=== PATIENT | male | born 1960 | race African-American/Black ===

== ENCOUNTER 2017-04-13 17:27 | Emergency (ER) | payer MEDICAID ==
[~2017-04-13] VITALS: Ht 180.3 cm; Wt 75.0 kg
[2017-04-13] MEDS ORDERED: TETANUS, DIPHTHERIA, PERTUSSIS VAC/PF 0.5ML (>7YR OLD) IM ONE (18:15)
[2017-04-13] MEDS ORDERED: BACITRACIN ZINC OINT UDPKT TOP ONE (18:15)
[2017-04-13] MEDS ORDERED: LIDOCAINE HCL 1% 20ML VIAL (Pyxis) INJ MC ONE (18:15)
[2017-04-13] MEDS ORDERED: IBUPROFEN 600MG TABLET PO ONE (20:00)
[2017-04-13 21:40] VITALS: BP 149/91
== END 2017-04-13 21:40 | disposition home or self-care (01) ==
LOC: ER 17:37
DX: S01.01XA Laceration without foreign body of scalp, initial encounter (principal); S40.011A Contusion of right shoulder, initial encounter; J45.909 Unspecified asthma, uncomplicated; I10 Essential (primary) hypertension; W18.39XA Other fall on same level, initial encounter; Y93.89 Activity, other specified; Y92.89 Other specified places as the place of occurrence of the external cause; Y99.8 Other external cause status
CPT/HCPCS: 12002; 70450; 73030; 99284; J3490

== ENCOUNTER 2020-05-14 14:42 | Emergency (ER) | payer MEDICAID ==
[~2020-05-14] VITALS: Ht 188 cm; Wt 68.5 kg
[2020-05-14] MEDS ORDERED: DEXTROSE 50% WATER 50ML SYRINGE IV ONE (15:30)
[2020-05-14 15:44] LABS: BASOPHILS % 0.5 % (0.0-2.0); EOSINOPHILS % 0.5 % (0.0-5.0); HEMATOCRIT. 39.4 % (42.0-52.0); HEMOGLOBIN. 12.9 g/dL (14.0-18.0); LYMPHOCYTES % 14.3 % (20.0-50.0); MEAN CORPUSCULAR HEMOGLOBIN 31.6 pg (28.0-32.0); MEAN CORPUSCULAR VOLUME 96.1 fL (80.0-94.0); MONOCYTES % 11.1 % (2.0-8.0); NEUTROPHILS % 73.6 % (40.0-76.0); PLATELET 52 x1000/uL (130-400); RED CELL DISTRIBUTION WIDTH 17.4 % (11.6-14.6)
[2020-05-14 15:54] LABS: INR 1.3; PARTIAL THROMBOPLASTIN TIME 30.6 sec (23.4-31.0); PROTHROMBIN TIME 13.4 sec (9.6-11.0)
[2020-05-14 15:58] LABS: CHLORIDE 101 mEq/L (98-107)
[2020-05-14] MEDS ORDERED: SODIUM CHLORIDE 0.9% 1,000 ML IV ONE (16:15)
[2020-05-14] MEDS ORDERED: POTASSIUM CHLORIDE 20MEQ TABLET SR PO ONE (18:45)
[2020-05-14 20:15] VITALS: BP 143/72
[2020-05-14] MEDS ORDERED: ASPIRIN 325MG EC TABLET PO ONE (22:30)
== END 2020-05-14 20:15 | disposition left against medical advice (07) ==
LOC: ER 14:42 → EDBEDREQ 21:13 → CANBEDREQ 22:55
DX: I21.4 Non-ST elevation (NSTEMI) myocardial infarction (principal); E16.2 Hypoglycemia, unspecified; E87.6 Hypokalemia; R74.01 Elevation of levels of liver transaminase levels; I10 Essential (primary) hypertension; J45.909 Unspecified asthma, uncomplicated; F17.210 Nicotine dependence, cigarettes, uncomplicated
CPT/HCPCS: 36415; 71045; 80053; 82962; 83880; 84484; 85025; 85610; 85730; 93005; 96374; 99285; J7030